=== PATIENT | female | born 1975 | race Caucasian/White ===

== ENCOUNTER 2017-10-15 15:53 | Emergency (ER) | payer MEDICARE, OTHER ==
[~2017-10-15] VITALS: Ht 167.6 cm; Wt 59.0 kg
[~2017-10-15 15:53] MED LIST: KLONOPIN1 MG ORAL; LYRICA75 M1 ORAL; NORCO 10-325 T1 EACH ORAL; SOMA350 MG PO
--- NOTE | 2017-10-15 15:57 | Emergency Room Report ---
History of Present Illness General Chief Complaint: Overdose Source: Patient, EMS Present Illness HPI Patient is brought in via EMS after they were called to [facility] clinic failure. She told them that she had taken excess medications at 7 AM. She took 3 Soma, one Klonopin and one [place] according to her. She states she did this because she was in pain and hadn't slept and wants to sleep. She's was also side of that time but denies intent to harm herself. The patient has taken overdoses in the past. She is under the care of therapists at the mental health clinic. She has pain in her back and foot (recent surgery). No fever, chills, headache, NVD, dysuria. Allergies: Coded Allergies: LATEX (Verified Allergy, Intermediate, Rash, 05/26/17) Patient History Past Medical History: see triage record, psych hx - depression Past Surgical History: other - spinal surgery and foot surgery Social History Narrative disabled - lives by herself Now: No Reviewed Nursing Documentation: PMH: Agreed; PSxH: Agreed Review of Systems All Other Systems: negative except mentioned in HPI Physical Exam Vital Signs Date Time Temp Pulse Resp B/P (MAP) Pulse Ox O2 Delivery O2 Flow Rate FiO2 10/15/17 15:48 98.5 96 20 109/74 96 Room Air 98.4 Sp02 EP Interpretation: reviewed, normal General Appearance: well appearing, no apparent distress, GCS 15 Head: normocephalic Eyes: bilateral eye normal inspection, bilateral eye PERRL ENT: moist mucus membranes Neck: supple Respiratory: lungs clear, normal breath sounds Cardiovascular #1: regular rate, rhythm Cardiovascular #2: 2+ radial (R) Gastrointestinal: normal inspection, normal bowel sounds, non tender, no mass, non-distended Musculoskeletal: gait/station normal, normal range of motion, tender - lumbar area with FROM and foot Neurologic: alert, oriented x3 Psychiatric: no suicidal/homicidal ideation, other - upset being here Skin: normal inspection, warm/dry Medical Decision Making Diagnostic Impression: Primary Impression: Drug overdose Qualified Codes: T50.901A - Poisoning by unspecified drugs, medicaments and biological substances, accidental (unintentional), initial encounter Additional Impressions: Chronic pain Qualified Codes: G89.29 - Other chronic pain Depression Qualified Codes: F32.9 - Major depressive disorder, single episode, unspecified ER Course Patient presents after taking medication excess at 7 AM. Differential includes suicidal gesture, excess medication ingestion, Tylenol excess amongst others. She is denying suicidal intent at this time. The patient will be evaluated with labs including acetaminophen level which should indicate how much she did take this morning. In addition to that we will consider consultation with psychiatry. Early contact of psychiatrist for possible consultation. Labs unremarkable (tylenol not increased). Patient improved with observation. She has denied SI from initial evaluation. Patient contracts for safety. Purposeful (wants to take care of her pets). Also plans to stay with neighbor. Patient stable for outpatient observation and treatment. Laboratory Tests Test 10/15/17 16:10 White Blood Count 6.5 K/UL (4.8-10.8) Red Blood Count 4.00 M/UL (4.20-5.40) L Hemoglobin 12.3 G/DL (12.0-16.0) Hematocrit 35.0 % (37.0-47.0) L Mean Corpuscular Volume 87 FL (80-99) Mean Corpuscular Hemoglobin 30.9 PG (27.0-31.0) Mean Corpuscular Hemoglobin Concent 35.3 G/DL (32.0-36.0) Red Cell Distribution Width 11.0 % (11.6-14.8) L Platelet Count 242 K/UL (150-450) Mean Platelet Volume 5.7 FL (6.5-10.1) L Neutrophils (%) (Auto) 48.2 % (45.0-75.0) Lymphocytes (%) (Auto) 42.2 % (20.0-45.0) Monocytes (%) (Auto) 7.3 % (1.0-10.0) Eosinophils (%) (Auto) 1.5 % (0.0-3.0) Basophils (%) (Auto) 0.9 % (0.0-2.0) Sodium Level 141 MMOL/L (136-145) Potassium Level 3.6 MMOL/L (3.5-5.1) Chloride Level 107 MMOL/L (98-107) Carbon Dioxide Level 27 MMOL/L (21-32) Anion Gap 8 mmol/L (5-15) Blood Urea Nitrogen 9 mg/dL (7-18) Creatinine 0.7 MG/DL (0.55-1.30) Estimate Glomerular Filtration Rate > 60 mL/min (>60) Glucose Level 90 MG/DL (74-106) Calcium Level 8.9 MG/DL (8.5-10.1) Total Bilirubin 0.3 MG/DL (0.2-1.0) Aspartate Amino Transferase (AST) 19 U/L (15-37) Alanine Aminotransferase (ALT) 27 U/L (12-78) Alkaline Phosphatase 62 U/L (46-116) Total Protein 7.4 G/DL (6.4-8.2) Albumin 3.6 G/DL (3.4-5.0) Globulin 3.8 g/dL Albumin/Globulin Ratio 0.9 (1.0-2.7) L Salicylates Level 3.6 ug/mL (2.8-20) Acetaminophen Level < 2 MCG/ML (10-30) L Serum Alcohol 3 mg/dL Rhythm Strip Diag. Results EP Interpretation: yes Rhythm: NSR, no PVC's, no ectopy Last Vital Signs Date Time Temp Pulse Resp B/P (MAP) Pulse Ox O2 Delivery O2 Flow Rate FiO2 10/15/17 19:20 84 16 132/71 98 Room Air 10/15/17 19:13 98.4 98.4 Status: improved Disposition: HOME, SELF-CARE Condition: Improved Syed Dee M.D. Oct 15, 2017 15:57
[2017-10-15 15:58] VITALS: BP 109/74
[2017-10-15 16:37] LABS: ANION GAP 8 mmol/L (5-15); BLOOD UREA NITROGEN 9 mg/dL (7-18); CALCIUM 8.9 MG/DL (8.5-10.1); CARBON DIOXIDE 27 MMOL/L (21-32); CHLORIDE 107 MMOL/L (98-107); CREATININE 0.7 MG/DL (0.55-1.30); POTASSIUM 3.6 MMOL/L (3.5-5.1); SODIUM 141 MMOL/L (136-145)
[2017-10-15 16:40] LABS: BASOPHILS % (AUTO) 0.9 % (0.0-2.0); EOSINOPHILS % (AUTO) 1.5 % (0.0-3.0); HEMOGLOBIN 12.3 G/DL (12.0-16.0); LYMPHOCYTES % (AUTO) 42.2 % (20.0-45.0); MEAN CORPUSCULAR VOLUME 87 FL (80-99); MONOCYTES % (AUTO) 7.3 % (1.0-10.0); NEUTROPHILS % (AUTO) 48.2 % (45.0-75.0); PLATELET COUNT 242 K/UL (150-450); WHITE BLOOD COUNT 6.5 K/UL (4.8-10.8)
[2017-10-15 16:42] LABS: ALANINE AMINOTRANSFERASE 27 U/L (12-78); ALBUMIN 3.6 G/DL (3.4-5.0); ALBUMIN/GLOBULIN RATIO 0.9 (1.0-2.7); ALKALINE PHOSPHATASE 62 U/L (46-116); ASPARTATE AMINO TRANSFERASE 19 U/L (15-37); BILIRUBIN,TOTAL 0.3 MG/DL (0.2-1.0)
[2017-10-15 19:13] VITALS: BP 132/72
[2017-10-15 19:20] VITALS: BP 132/71
== END 2017-10-15 19:20 | disposition home or self-care (01) ==
LOC: EDBD 15:53 → EMR 16:19
DX: T50.901A Poisoning by unspecified drugs, medicaments and biological substances, accidental (unintentional), initial encounter (principal); G89.29 Other chronic pain; F32.9 Major depressive disorder, single episode, unspecified; Z91.040 Latex allergy status; Y92.89 Other specified places as the place of occurrence of the external cause
CPT/HCPCS: 36415; 80053; 85025; 99283; G0480; 80329

== ENCOUNTER 2019-01-06 17:02 | Emergency (ER) | payer MEDICARE, OTHER ==
[~2019-01-06] VITALS: Ht 166.4 cm; Wt 55.3 kg
[2019-01-06 17:08] VITALS: BP 129/85
[2019-01-06] MEDS ORDERED: HYDROXYZINE HCL50 M1 PO (17:14)
[2019-01-06] MEDS ORDERED: GABAPENTIN400 MG ORAL (17:14)
[2019-01-06] MEDS ORDERED: MYRBETRIQ25 MG PO (17:14)
--- NOTE | 2019-01-06 17:41 | Emergency Room Report ---
History of Present Illness General Chief Complaint: Pain Source: Patient Present Illness HPI 43-year-old female with history of lumbar disc dislocation and neuropathic pain as well as degenerative disc disease currently under the care of , and taking gabapentin, ibuprofen, and Soma here complaining of worsening pain x2 days. Patient reports that she used to be on extensive narcotic treatment as she did not like that was switched to gabapentin however is trying to wean off of gabapentin due to feeling confused. Patient has an upcoming appointment with her primary care on Wednesday. Denies any new fall or injury. Patient has not had an MRI of the neck and lower back in a year. I explained to her that x- ray will not show her chronic neuropathic pain. Patient has overreactive bladder and takes medication. Denies renal disease, chest pain, shortness of breath, palpitation, no other associated symptoms. Patient reports that she does not want to go back to taking oxycodone, [place], and only would like to take half a pill of tramadol every few hours until she gets to see her primary care. Cures was done on patient patient has not been prescribed any narcotics since October 2018. Patient surgery was in 2014. Patient is sitting in mild distress however speaks in full sentences. Last menstrual period was 3 weeks ago and regular. Allergies: Coded Allergies: LATEX (Verified Allergy, Intermediate, Rash, 05/26/17) Patient History Past Medical History: see triage record Past Surgical History: unable to obtain Pertinent Family History: none Last Menstrual Period: 12/29/18 Now: No Immunizations: UTD Reviewed Nursing Documentation: PMH: Agreed; PSxH: Agreed Review of Systems All Other Systems: negative except mentioned in HPI Physical Exam Vital Signs Date Time Temp Pulse Resp B/P (MAP) Pulse Ox O2 Delivery O2 Flow Rate FiO2 01/06/19 17:08 98.4 98 18 129/85 (100) 99 Room Air Sp02 EP Interpretation: reviewed, normal General Appearance: alert, GCS 15, non-toxic, mild distress Head: normocephalic, atraumatic Eyes: bilateral eye normal inspection, bilateral eye PERRL ENT: normal ENT inspection, hearing grossly normal Neck: full range of motion, supple/symm/no masses Respiratory: chest non-tender, lungs clear, normal breath sounds, no rhonchi, no wheezing, speaking full sentences Cardiovascular #1: regular rate, rhythm, no edema, no murmur Gastrointestinal: normal bowel sounds, non tender, soft, non-distended, no guarding, no rebound Genitourinary: normal inspection, no CVA tenderness Musculoskeletal: back normal, gait/station normal, normal range of motion, non- tender Neurologic: alert, oriented x3, responsive, motor strength/tone normal, sensory intact, speech normal Psychiatric: judgement/insight normal, memory normal, mood/affect normal, no suicidal/homicidal ideation Skin: no rash Lymphatic: no adenopathy Medical Decision Making PA Attestation All diagnoses and treatment plans were reviewed and discussed with my supervising physician Dr. Dee Diagnostic Impression: Primary Impression: Chronic back pain Additional Impression: Chronic neuropathic pain ER Course 43-year-old female with history of lumbar disc dislocation and neuropathic pain as well as degenerative disc disease currently under the care of , and taking gabapentin, ibuprofen, and Soma here complaining of worsening pain x2 days. Patient reports that she used to be on extensive narcotic treatment as she did not like that was switched to gabapentin however is trying to wean off of gabapentin due to feeling confused. Patient has an upcoming appointment with her primary care on Wednesday. Denies any new fall or injury. Patient has not had an MRI of the neck and lower back in a year. I explained to her that x- ray will not show her chronic neuropathic pain. Patient has overreactive bladder and takes medication. Denies renal disease, chest pain, shortness of breath, palpitation, no other associated symptoms. Patient reports that she does not want to go back to taking oxycodone, [place], and only would like to take half a pill of tramadol every few hours until she gets to see her primary care. Cures was done on patient patient has not been prescribed any narcotics since October 2018. Patient surgery was in 2014. Patient is sitting in mild distress however speaks in full sentences. Last menstrual period was 3 weeks ago and regular. Ddx considered but are not limited to: Lumbar spine sprain, strain, fracture, contusion, neuropathy Vital signs: are WNL, pt. is afebrile H&PE are most consistent with: Chronic back pain, chronic neuropathic pain ORDERS: Tramadol ER intervention: Toradol DISCHARGE: At this time pt. is stable for d/c to home. Will provide printed patient care instructions, and any necessary prescriptions. Care plan and follow up instructions have been discussed with the patient prior to discharge. Patient is a medication with specialist and pain management patient agrees. Also agrees to return to emergency room if worsening pain. I explained the patient at this time patient x-ray this is nerve related issue and to follow with her primary care patient agrees Last Vital Signs Date Time Temp Pulse Resp B/P (MAP) Pulse Ox O2 Delivery O2 Flow Rate FiO2 01/06/19 17:08 98.4 98 18 129/85 (100) 99 Room Air Disposition: HOME, SELF-CARE Condition: Stable Scripts Tramadol Hcl* (ULTRAM*) 50 Mg Tablet 50 MG ORAL Q6H PRN for For Pain for 4 Days, #16 TAB 0 Refills Prov: Belkys Tripathi 01/06/19 Patient Instructions: Chronic Back Pain, Neuropathic Pain Additional Instructions: Follow-up with your doctor for further assessment take medication as directed avoid strenuous physical activity worsening symptoms return to the emergency room Belkys Tripathi Jan 06, 2019 17:41
[2019-01-06] MEDS ORDERED: TRAMADOL HCL50 MG ORAL (17:42)
[2019-01-06] MEDS ORDERED: Ketorolac 60mg Inj IM ONE (17:45)
--- NOTE | 2019-01-06 17:45 | NUR ---
ED Nurse Note: Patient presents to ER due to worsening right side low back pain radiating to RLE and neck pain radiating to back; hx of back surgery; patient states pain increased after she stopped taking her pain medication back in November, and she could not make appt with PCP. Patient ambulated to the room with steady gait.
--- NOTE | 2019-01-06 18:00 | NUR ---
ED Nurse Note: Patient is being discharged from medical care. D/C instruction and prescriptions given to patient. All questions were answered. Patient ambulated out with steady gait with all her belongings, accompanied by friend.
== END 2019-01-06 18:00 | disposition home or self-care (01) ==
LOC: EMR 17:33
DX: G89.29 Other chronic pain (principal); M51.36 Other intervertebral disc degeneration, lumbar region; Z91.040 Latex allergy status; Z79.899 Other long term (current) drug therapy
CPT/HCPCS: 96372; 99283

== ENCOUNTER 2019-01-12 21:17 | Emergency (ER) | payer MEDICARE, OTHER ==
[~2019-01-12] VITALS: Ht 167.6 cm; Wt 55.3 kg
[~2019-01-12 21:17] MED LIST changes: +GABAPENTIN400 MG ORAL; +HYDROXYZINE HCL50 M1 PO; +MYRBETRIQ25 MG PO; +TRAMADOL HCL50 MG ORAL
--- NOTE | 2019-01-12 21:30 | NUR ---
ED Nurse Note: Recieved pt SHEEBA w/ police on 5150 hold for DTS, pt has hx of depression and chronic pain, pt at home called primary MD and told him she was going to OD on pills, MD called police, pt is awake, alert and oriented x 4, very restless and agitated, has fine motor hand tremors and is actively vomiting, large amounts of phlem like secretions, pt is crying, is cooperative, pt gowned and all belongings taken, pt also has diarrhea, will resume care as ordered and closely monitor using protocol for 5150.
--- NOTE | 2019-01-12 22:07 | Emergency Room Report ---
History of Present Illness General Chief Complaint: Behavioral Complaint Source: Patient Present Illness HPI Patient is a 43-year-old female who presents after increased neck pain. Patient reports having prior history of chronic pain. She is currently followed by pain management. Patient was reportedly thought to be suicidal by her primary care physician. Patient was placed on a psychiatric hold. She had prior history of chronic neck pain due to prior surgeries. She had previous overdose on medications several years ago. She had prior history of chronic neck discomfort. She had been able to ambulate well. Allergies: Coded Allergies: LATEX (Verified Allergy, Intermediate, Rash, 05/26/17) Patient History Past Medical History: see triage record Now: No Reviewed Nursing Documentation: PMH: Agreed; PSxH: Agreed Nursing Documentation-PMH Past Medical History: No History, Except For Review of Systems All Other Systems: negative except mentioned in HPI Physical Exam Vital Signs Date Time Temp Pulse Resp B/P (MAP) Pulse Ox O2 Delivery O2 Flow Rate FiO2 01/12/19 21:13 98.8 74 18 128/84 (99) 99 Room Air Sp02 EP Interpretation: reviewed, normal General Appearance: normal inspection, well appearing, no apparent distress, alert, GCS 15, non-toxic Head: atraumatic ENT: normal ENT inspection, hearing grossly normal, normal voice Neck: normal inspection, full range of motion, supple, no bony tend Respiratory: normal inspection, lungs clear, normal breath sounds, no respiratory distress, no retraction, no wheezing Cardiovascular #1: regular rate, rhythm, no edema Gastrointestinal: normal inspection, normal bowel sounds, non tender, soft, no guarding, no hernia Genitourinary: no CVA tenderness Musculoskeletal: normal inspection, back normal, normal range of motion Neurologic: normal inspection, alert, oriented x3, responsive, process operator III-XII nml as tested, speech normal Psychiatric: normal inspection, judgement/insight normal, mood/affect normal Medical Decision Making Diagnostic Impression: Primary Impression: Chronic pain Additional Impression: Depression ER Course Patient presented for complaint of depression. Differential diagnosis include was not limited to suicidal thoughts, depression, chronic pain exacerbation among others. Because of complexity of patient's case laboratory tests and imaging studies were ordered. Patient's laboratory testing was unremarkable. She is given medications which she takes for chronic pain. Patient was noted to have some improvement in discomfort after medications. patient is medically cleared for psychiatric evaluation. Patient transferring to psych facility. Labs Test 9/5/19 21:48 White Blood Count 9.6 K/UL (4.8-10.8) Red Blood Count 4.24 M/UL (4.20-5.40) Hemoglobin 12.7 G/DL (12.0-16.0) Hematocrit 36.7 % (37.0-47.0) Mean Corpuscular Volume 87 FL (80-99) Mean Corpuscular Hemoglobin 29.8 PG (27.0-31.0) Mean Corpuscular Hemoglobin Concent 34.5 G/DL (32.0-36.0) Red Cell Distribution Width 12.2 % (11.6-14.8) Platelet Count 295 K/UL (150-450) Mean Platelet Volume 4.9 FL (6.5-10.1) Neutrophils (%) (Auto) 51.7 % (45.0-75.0) Lymphocytes (%) (Auto) 38.5 % (20.0-45.0) Monocytes (%) (Auto) 7.6 % (1.0-10.0) Eosinophils (%) (Auto) 1.0 % (0.0-3.0) Basophils (%) (Auto) 1.3 % (0.0-2.0) Urine HCG, Qualitative Negative (NEGATIVE) Sodium Level 142 MMOL/L (136-145) Potassium Level 3.8 MMOL/L (3.5-5.1) Chloride Level 106 MMOL/L (98-107) Carbon Dioxide Level 25 MMOL/L (21-32) Anion Gap 11 mmol/L (5-15) Blood Urea Nitrogen 16 mg/dL (7-18) Creatinine 0.8 MG/DL (0.55-1.30) Estimat Glomerular Filtration Rate > 60 mL/min (>60) Glucose Level 101 MG/DL (74-106) Calcium Level 9.4 MG/DL (8.5-10.1) Total Bilirubin 0.3 MG/DL (0.2-1.0) Aspartate Amino Transf (AST/SGOT) 20 U/L (15-37) Alanine Aminotransferase (ALT/SGPT) 22 U/L (12-78) Alkaline Phosphatase 57 U/L (46-116) Total Protein 7.9 G/DL (6.4-8.2) Albumin 3.8 G/DL (3.4-5.0) Globulin 4.1 g/dL Albumin/Globulin Ratio 0.9 (1.0-2.7) Salicylates Level 1.8 ug/mL (2.8-20) Urine Opiates Screen Negative (NEGATIVE) Acetaminophen Level < 2 MCG/ML (10-30) Urine Barbiturates Screen Negative (NEGATIVE) Phencyclidine (PCP) Screen Negative (NEGATIVE) Urine Amphetamines Screen Negative (NEGATIVE) Urine Benzodiazepines Screen Negative (NEGATIVE) Urine Cocaine Screen Negative (NEGATIVE) Urine Marijuana (THC) Screen Positive (NEGATIVE) Serum Alcohol < 3 mg/dL Last Vital Signs Date Time Temp Pulse Resp B/P (MAP) Pulse Ox O2 Delivery O2 Flow Rate FiO2 01/12/19 21:13 98.8 74 18 128/84 (99) 99 Room Air Status: improved Disposition: XFER TO PSYCH HOSP/UNIT Condition: Stable Joseph Estevez MD Jan 12, 2019 22:07
[2019-01-12] MEDS ORDERED: METHOCARBAMOL750 MG ORAL (22:21)
[2019-01-12 22:31] LABS: BASOPHILS % (AUTO) 1.3 % (0.0-2.0); HEMATOCRIT 36.7 % (37.0-47.0); HEMOGLOBIN 12.7 G/DL (12.0-16.0); LYMPHOCYTES % (AUTO) 38.5 % (20.0-45.0); MEAN CORPUSCULAR VOLUME 87 FL (80-99); MONOCYTES % (AUTO) 7.6 % (1.0-10.0); NEUTROPHILS % (AUTO) 51.7 % (45.0-75.0); PLATELET COUNT 295 K/UL (150-450); RED BLOOD COUNT 4.24 M/UL (4.20-5.40); RED CELL DISTRIBUTION WIDTH 12.2 % (11.6-14.8); WHITE BLOOD COUNT 9.6 K/UL (4.8-10.8)
[2019-01-12 22:44] LABS: ANION GAP 11 mmol/L (5-15); BLOOD UREA NITROGEN 16 mg/dL (7-18); CALCIUM 9.4 MG/DL (8.5-10.1); CARBON DIOXIDE 25 MMOL/L (21-32); CHLORIDE 106 MMOL/L (98-107); CREATININE 0.8 MG/DL (0.55-1.30); POTASSIUM 3.8 MMOL/L (3.5-5.1); SODIUM 142 MMOL/L (136-145)
[2019-01-12 22:48] LABS: ALANINE AMINOTRANSFERASE 22 U/L (12-78); ALBUMIN 3.8 G/DL (3.4-5.0); ALBUMIN/GLOBULIN RATIO 0.9 (1.0-2.7); ALKALINE PHOSPHATASE 57 U/L (46-116); ASPARTATE AMINO TRANSFERASE 20 U/L (15-37); BILIRUBIN,TOTAL 0.3 MG/DL (0.2-1.0)
[2019-01-12 23:00] VITALS: BP 134/81
[2019-01-13] MEDS ORDERED: traMADol 50mg tab ORAL ONE
--- NOTE | 2019-01-13 | NUR ---
ED Nurse Note: Pt continues to rest in room, having intermittent periods of increased anxiety and agitation, pt also is constantly going to bathroom for diarrhea, MD is aware, pt given meds as ordered, remains on 5150 hold precautions, pt is cooperative and tearful, crying all the time, pt ahs patent saline lock, will continue to closely monitor. no attempts made and on suicidal and hold precautions.
[2019-01-13 02:10] VITALS: BP 121/78
[2019-01-13] MEDS ORDERED: Methocarbamol 750mg tab ORAL ONE (02:15)
--- NOTE | 2019-01-13 02:30 | NUR ---
ED Nurse Note: Pt in room awake and alert, more calm and is cooperative, pt medicated again for nausea and pain, meds effective, pt is speakin and conversing with staff and pleasant at this time, no pain, no sob or labored breathing, remains on suicidal precautions and close to nurses station for continuous observation, will continue to closely monitor as waiting for psych placement.
[2019-01-13] MEDS ORDERED: HydrOXYzine 50mg tab ORAL ONE (04:45)
[2019-01-13 05:00] VITALS: BP 119/69
--- NOTE | 2019-01-13 05:45 | NUR ---
ED Nurse Note: Pt awake and alert, pt is becoming restless again and with nausea and vomiting, also tremors returning, MD informed immediately, remains on suicidal precautions, V/S stable, no increased distress or changes noted, will continue to closely monitor.
--- NOTE | 2019-01-13 07:49 | NUR ---
ED Nurse Note:pt. is awake had breakfast, went to bathroom condition stable, sitter is in the room
[2019-01-13] MEDS ORDERED: LORazepam 1mg tab ORAL ONE (08:00)
[2019-01-13 10:00] VITALS: BP 116/82
[2019-01-13 10:10] VITALS: BP 116/82
--- NOTE | 2019-01-13 10:10 | NUR ---
ED Nurse Note:pt. was picked up by paramedics transport for [facility] evaluation, IV line was removed ,all personal belongings and meds were returned to pt. ,report given to paramedics, condition stable for transfer
== END 2019-01-13 10:15 ==
LOC: EDBD 21:17 → EMR 22:26
DX: F32.9 Major depressive disorder, single episode, unspecified (principal); G89.29 Other chronic pain; M54.2 Cervicalgia; Z91.040 Latex allergy status
CPT/HCPCS: 36415; 80053; 80307; 81025; 85025; 96374; 96376; 99284; G0480; J2405; 80329